=== PATIENT | male | born 1975 | race Caucasian/White ===

== ENCOUNTER 2017-10-14 13:10 | Inpatient (IN) | payer OTHER ==
[~2017-10-14] VITALS: Ht 185.4 cm; Wt 66.2 kg
[~2017-10-14 13:10] MED LIST: AUGMENTIN 875875 MG PO; MOTRIN800 MG PO
--- NOTE | 2017-10-14 13:22 | ED GENERAL ADULT ---
History of Present Illness General Chief Complaint: ETOH/Drug Related Complaint Stated Complaint: ETOH WITHDRAWL Source: patient Exam Limitations: no limitations Vital Signs & Intake/Output Vital Signs & Intake/Output Vital Signs Date Time Temp Pulse Resp B/P B/P Pulse O2 O2 Flow FiO2 Mean Ox Delivery Rate 10/15 1030 98.0 74 20 136/80 10/15 1014 98.0 74 20 136/80 99 Room Air 10/15 0830 98.4 81 18 145/89 10/15 0802 98.4 81 18 145/89 98 10/15 0634 98.3 60 18 114/61 99 Room Air 10/15 0629 98.6 78 18 101/60 10/15 0345 98.3 69 18 109/57 10/15 0344 98.0 69 18 109/57 97 Room Air 10/15 0009 98.0 64 18 118/70 10/14 2029 99.5 69 18 126/72 98 Room Air 10/14 1804 99.0 78 18 133/92 98 Room Air 10/14 1617 97.9 70 18 120/79 99 Room Air 10/14 1323 97.5 98 20 137/88 98 Room Air ED Intake and Output 10/15 0000 10/14 1200 Intake Total 1000 Output Total Balance 1000 Intake, IV 1000 Patient 146 lb Weight Weight Reported by Patient Measurement Method Allergies Coded Allergies: MDX - Nka - No Known Allergies (NKA - NO KNOWN ALLERGIES) (06/01/14) Reconcile Medications No Known Home Medications Triage Note: PT PRESENTS TO ED WITH , WHO STATES PT HAD A SEIZURE THIS AM, (WITNESSED BY HER). TRIED TO STOP DRINKING YESTERDAY, HAS BEEN DRINKING VODKA DAILY FOR YEARS. (8-10 DRINKS PER DAY). ANGRY, Triage Nurses Notes Reviewed? yes HPI: 42 yo M PMH EtOH abuse/dependence presenting with Seizure. Patient has extensive drinking history, has been drinking "for most of his life ", very heavily for at least the last 10-15 years, stopped drinking yesterday around 15: 00, today patient as were calling detox centers, patient was laying on the couch, tremulous, became unresponsive, had 2-3 minutes tonic-clonic seizure with spontaneous resolution, associated postictal confusion without fall from couch or head trauma. Shortly after the seizure patient ingested ~1L of vodka to prevent further withdrawal symptoms. Arrives to ED intoxicated, mild slurred speech, no other complaints at this time still desires alcohol cessation and detox. Patient notes fall with head trauma 1 week ago, sustained left frontal laceration, evaluated at outside hospital, per and patient CT head negative. Denies headaches, neck pain, fevers, chest pain, short of breath, cough or URI symptoms, abdominal pain, nausea, vomiting, diarrhea, Patient, but he stools, urinary symptoms, focal neurologic symptoms. (Ubaldo Aguero MD) Past History Travel History Traveled to [place] past 21 day No Medical History Any Pertinent Medical History? see below for history Other Medical Hx: ALCOHOL DEPENDENCE Surgical History Surgical History: non-contributory Psychosocial History What is your primary language Greek Family History Hx Contributory? No (Ubaldo Aguero MD) Review of Systems Review of Systems Constitutional: Reports: see HPI. EENTM: Reports: no symptoms. Respiratory: Reports: no symptoms. Cardiovascular: Reports: no symptoms. GI: Reports: no symptoms. Genitourinary: Reports: no symptoms. Musculoskeletal: Reports: no symptoms. Skin: Reports: no symptoms. Neurological/Psychological: Reports: see HPI. Hematologic/Endocrine: Reports: no symptoms. Immunologic/Allergic: Reports: no symptoms. All Other Systems: Reviewed and Negative (Ubaldo Aguero MD) Physical Exam Physical Exam General Appearance: well developed/nourished, no apparent distress, alert, awake Eyes: Bilateral: PERRL, EOMI. Ears, Nose, Throat: normal pharynx Neck: normal inspection, full range of motion, no midline tenderness Respiratory: normal breath sounds, no respiratory distress, lungs clear Cardiovascular: regular rate/rhythm, normal peripheral pulses Gastrointestinal: normal bowel sounds, soft, non-tender Comments: HEENT: Healing linear left frontal laceration with sutures in place C-spine: No midline bony C-spine tenderness to palpation with full range of motion Neurologic: Appears fatigued, oriented 3, cranial nerves II through XII intact, no pronator drift, no motor or sensory deficits throughout bilateral upper and lower extremities Core Measures ACS in differential dx? No CVA/TIA Diagnosis: No Sepsis Present: No Sepsis Focused Exam Completed? No (Ubaldo Aguero MD) Progress Differential Diagnoses I considered the following diagnoses in my evaluation of the patient: [Alcohol withdrawal, epilepsy, metabolic derarrangement, ICH] Plan of Care: Orders Procedure Date/time Status Regular Diet 10/15 L Active Regular Diet 10/15 B Complete OXYGEN SETUP (GEN) 10/15 1053 Active Saline Lock 10/15 1053 Active Admit to inpatient 10/15 1053 Active Vital Signs 10/15 1053 Active Activity/Ambulation 10/15 1053 Active Code Status 10/15 1053 Active Pathway - chart 10/15 0030 Active Add-on Test (ER Only) 10/14 1814 Active Pathway - chart 10/14 1544 Active CIWA 10/14 1544 Active URINE DRUG SCREEN FOR ER ONLY 10/14 1316 Complete URINALYSIS 10/14 1316 Complete MAGNESIUM 10/14 1316 Complete ETHANOL 10/14 1316 Complete COMPREHENSIVE METABOLIC PANEL 10/14 1316 Complete CBC WITHOUT DIFFERENTIAL 10/14 1316 Complete Current Medications Sig/Breanne Start time Last Medication Dose Stop Time Status Admin Lorazepam 2 MG Q2P PRN 10/15 0030 UNVr (Ativan) Lorazepam 1 MG Q2P PRN 10/15 0030 UNVr (Ativan) Lorazepam 2 MG Q2P PRN 10/14 1545 UNVr (Ativan) Lorazepam 1 MG Q2P PRN 10/14 1545 UNVr (Ativan) Folic Acid 1 MG DAILY 10/14 1430 UNVr 10/15 (Folic Acid) 1010 Multivitamins 1 TAB DAILY 10/14 1430 UNVr 10/15 (Theragran Vitamins) 1010 Thiamine HCl 100 MG DAILY 10/14 1430 UNVr 10/15 (Vitamin B1) 1010 Laboratory Tests 10/14/17 1423: Anion Gap 18 H, Estimated GFR > 60, BUN/Creatinine Ratio 16.0, Glucose 92, Calcium 9.4, Magnesium 1.7, Total Bilirubin 0.9, AST 77 H, ALT 46, Alkaline Phosphatase 61, Total Protein 7.9, Albumin 4.5, Globulin 3.4, Albumin/Globulin Ratio 1.3, CBC w Diff NO MAN DIFF REQ, RBC 4.45 L, MCV 98.6 H, MCH 32.9 H, MCHC 33.4, RDW 13.1, MPV 7.6, Gran % 59.6, Lymphocytes % 32.1, Monocytes % 7.0, Eosinophils % 1.0, Basophils % 0.3, Absolute Granulocytes 4.3, Absolute Lymphocytes 2.3, Absolute Monocytes 0.5, Absolute Eosinophils 0.1, Absolute Basophils 0, Serum Alcohol 358.0 10/14/17 1339: Urine Opiates Screen < 100, Methadone Screen < 40, Barbiturate Screen < 60, Ur Phencyclidine Scrn < 6.00, Amphetamines Screen 106, U Benzodiazepines Scrn 529 H, Urine Cocaine Screen < 50, Urine Cannabis Screen < 5.00, Urinalysis LIGHT H, Urine Color YEL, Urine Clarity HAZY H, Urine pH 6.0, Ur Specific Walker 1.020, Urine Protein TRACE H, Urine Ketones NEG, Urine Nitrite NEG, Urine Bilirubin NEG, Urine Urobilinogen 0.2, Ur Leukocyte Esterase NEG, Ur Microscopic SEDIMENT EXAMINED, Urine RBC RARE, Urine WBC 1-3 H, Ur Epithelial Cells OCCAS, Urine Bacteria RARE H, Hyaline Casts 50-75 H, Granular Casts 1-3 H, Urine Mucus MANY H, Urine Hemoglobin NEG, Urine Glucose NEG Physician MDM: 42 yo M PMH EtOH abuse/dependence presenting with Seizure. VSS, HR 90s, BP stable, neurologic exam non-focal. DDx: EtOH withdrawal seizure, metabolic derrangement, Less likely primary seizure disorder, low concern for ICH (given negative CT following injury). Ethanol level 358, patient does not have any active withdrawal symptoms, she will order placed, when necessary Ativan dose via CIWA ordered. 1L normal saline given for presumed dehydration in the setting of alcohol abuse. CBC unremarkable. CMP with mild hypokalemia to 3.0 (potassium repleted, magnesium repleaded empirically), mild AST elevation , otherwise normal LFTs. Plan to monitor for withdrawal symptoms in ED on CIWA scale, admit for detox in the setting of alcohol withdrawal seizure. Initial ED EKG: normal sinus rhythm (Laci CASTILLO,Ubaldo) Hand-Off Endorsed To: Sundar May MD Endorsed Time: 0700 Pending: consult (Onelia CASTILLO,Luis Alberto Luz) Comments: Certification completed for hospitalization for alcohol withdrawal seizure (Sundar May MD) Departure Departure Disposition: STILL A PATIENT Condition: Stable Clinical Impression Primary Impression: Alcohol withdrawal seizure Secondary Impressions: Alcohol dependence during childbirth Referrals: Patient Has No Primary Care Dr (PCP/Family) Departure Forms: Customer Survey General Discharge Information Prescriptions: Current Visit Scripts No Known Home Medications Admission Note Documentation of Exam: Documentation of any treatments & extenuating circumstances including Concerns Regarding Discharge (functional status, medication knowledge or non-compliance, living conditions, etc.) that warrant an admission rather than observation: [ Patient presents with a history of heavy alcohol abuse for the last 10-15 years, temperature stop drinking outpatient on his own and had a alcohol withdrawal seizure which carries an extremely high mortality, patient is currently intoxicated, patient requires monitoring for worsening withdrawal symptoms with sobriety, he requires admission for close observation, IV benzodiazepines, and further evaluation of seizure, if discharge the patient has a high likelihood of recurrent seizures in the setting of alcohol cessation, and possibly .] (Ubaldo Aguero MD) PA/PSYCHOLOGIST INDUSTRIAL [employer]GANIZATIONAL Co-Sign Statement Statement: ED Attending supervision documentation- [] I saw and evaluated the patient. I have also reviewed all the pertinent lab results and diagnostic results. I agree with the findings and the plan of care as documented in the PA's/PSYCHOLOGIST INDUSTRIAL ORGANIZATIONAL's documentation. [x] I have reviewed the ED Record and agree with the PA's/PSYCHOLOGIST INDUSTRIAL ORGANIZATIONAL's documentation. [] Additions or exceptions (if any) to the PAs/PSYCHOLOGIST INDUSTRIAL ORGANIZATIONAL's note and plan are summarized below: [] (Onelia CASTILLO,Luis Alberto Luz) Departure Time of Disposition: 1100 Admission Note Spoke With: Aneudy CASTILLO,Robert Documentation of Exam: Documentation of any treatments & extenuating circumstances including Concerns Regarding Discharge (functional status, medication knowledge or non-compliance, living conditions, etc.) that warrant an admission rather than observation: Alcohol Withdrawl Admission ED Alcohol Detox Admission d/t: DTs/Seizure w/i last year, Acute MedCond D/T Alcohol Resident Co-Sign Statement Statement: ED Attending supervision documentation- x I saw and evaluated the patient. I have also reviewed all the pertinent lab results and diagnostic results. I agree with the findings and the plan of care as documented in the Resident's documentation. [] I have reviewed the ED Record and agree with the Resident's documentation. [] Additions or exceptions (if any) to the Resident's note and plan are summarized below: [] (Yadira CASTILLO,Sundar) Critical Care Note Critical Care Note Critical Care Time: non-applicable (Laci CASTILLO,Ubaldo)
[2017-10-14 14:37] LABS: ABSOLUTE BASOPHIL COUNT 0 /CUMM (0.0-0.2); ABSOLUTE EOSINOPHIL COUNT 0.1 /CUMM (0.0-0.7); ABSOLUTE GRANULOCYTE CT 4.3 /CUMM (1.4-6.5); ABSOLUTE LYMPH COUNT 2.3 /CUMM (1.2-3.4); ABSOLUTE MONOCYTE COUNT 0.5 /CUMM (0.10-0.60); BASOPHIL % 0.3 % (0.0-2.0); GRANULOCYTE % 59.6 % (42.2-75.2); HEMATOCRIT 43.9 % (42-52); MEAN CORPUSCULAR HGB 32.9 PG (27.0-31.0); MEAN CORPUSCULAR HGB CONC 33.4 G/DL (33.0-37.0); MEAN CORPUSCULAR VOLUME 98.6 FL (80.0-94.0); MEAN PLATELET VOLUME 7.6 FL (7.4-10.4); PLATELET COUNT 117 /CUMM (130-400); RBC DISTRIBUTION WIDTH 13.1 % (11.5-14.5); RED BLOOD CELL CT 4.45 /CUMM (4.70-6.10); WHITE BLOOD CELL COUNT 7.2 /CUMM (4.8-10.8)
[2017-10-15] VITALS (9 sets, daily range): BP systolic 101–145; BP diastolic 57–89
--- NOTE | 2017-10-15 11:52 | History & Physical ---
Tawnya Lopez 10/15/17 1137: General Information and HPI MD Statement: I have seen and personally examined CLAUDIA CONTRERAS and documented this H&P. The patient is a 42 year old M who presented with a patient stated chief complaint of [recall detox]. Source of Information: patient Exam Limitations: no limitations History of Present Illness: Patient is a 42-year-old male with past medical history of withdrawal seizures, 3 episodes of alcohol detox(last detox [facility]) who presented to the ED requesting alcohol detox status post a tonic-clonic seizure at home. Patient reports that he has been drinking heavily for the past several years. He drinks mostly vodka about 8-10 drinks per day. Yesterday he was drinking all morning. At around midday, he had a tonic-clonic seizure witnessed by his . Seizure continued for 2-3 minutes along with postictal confusion. Patient denies any trauma, bowel or bladder incontinence, tongue biting during the seizure. The seizure he comes in 1 L of vodka prevent another episode. Patient also reported a recent fall about 7 days ago after which he was seen at an outpatient facility and a CAT scan done was negative for any acute head injury. Patient denies any headaches, neck pain, fevers, chest pain, short of breath, cough or URI symptoms, abdominal pain, nausea, vomiting, diarrhea, Patient, but he stools, urinary symptoms, focal neurologic symptoms. He has history of alcohol withdrawal seizures in the past. In the ED his vitals were stable. Labs were significant for hypokalemia and AST of 77. Tox positive for benzos. Ethanol level 358 Patient received IV fluids and IV potassium in the day. Allergies/Medications Allergies: Coded Allergies: MDX - Nka - No Known Allergies (NKA - NO KNOWN ALLERGIES) (06/01/14) Home Med list No Known Home Medications Past History Travel History Traveled to [place] past 21 day No Medical History Neurological: seizure Other Medical Hx: ALCOHOL DEPENDENCE Surgical History Surgical History: non-contributory Past Family/Social History Psychosocial History ETOH Use: alcoholic Review of Systems Review of Systems Constitutional: Reports: malaise, weakness. EENTM: Reports: no symptoms. Cardiovascular: Reports: no symptoms. Respiratory: Reports: no symptoms. GI: Reports: no symptoms. Genitourinary: Reports: no symptoms. Musculoskeletal: Reports: no symptoms. Neurological/Psychological: Reports: tremors. Exam & Diagnostic Data Last 24 Hrs of Vital Signs/I&O Vital Signs Date Time Temp Pulse Resp B/P B/P Pulse O2 O2 Flow FiO2 Mean Ox Delivery Rate 10/15 1030 98.0 74 20 136/80 10/15 1014 98.0 74 20 136/80 99 Room Air 10/15 0830 98.4 81 18 145/89 10/15 0802 98.4 81 18 145/89 98 10/15 0634 98.3 60 18 114/61 99 Room Air 10/15 0629 98.6 78 18 101/60 10/15 0345 98.3 69 18 109/57 10/15 0344 98.0 69 18 109/57 97 Room Air 10/15 0009 98.0 64 18 118/70 10/14 2029 99.5 69 18 126/72 98 Room Air 10/14 1804 99.0 78 18 133/92 98 Room Air 10/14 1617 97.9 70 18 120/79 99 Room Air 10/14 1323 97.5 98 20 137/88 98 Room Air Intake & Output 10/15 1600 10/15 0800 10/15 0000 Intake Total 240 Output Total Balance 240 Intake, Oral 240 Physical Exam General Appearance Alert, Oriented X3, Cooperative, No Acute Distress Skin LACERATION IN LEFT FRONTAL REGION WITH SUTURES Skin Temp/Moisture Exam: Warm/Dry Sepsis Skin Exam (color): Normal for Ethnicity HEENT Atraumatic, PERRLA, EOMI Neck Supple Lymphatic Cervical nl Cardiovascular Regular Rate, Normal S1, Normal S2, No Murmurs Lungs Clear to Auscultation, Normal Air Movement Abdomen Normal Bowel Sounds Neurological TREMORS Extremities No Clubbing, No Cyanosis, No Edema, Normal Pulses Assessment/Plan Assessment: Patient is a 42-year-old male with past medical history of withdrawal seizures, 3 episodes of alcohol detox(last detox [facility]) who presented to the ED requesting alcohol detox status post a tonic-clonic seizure at home. In the ED his vitals were stable. Labs were significant for hypokalemia and AST of 77. Tox positive for benzos. Ethanol level 358 Patient received IV fluids and IV potassium in the day. Assessment * Alcohol withdrawal seizures * Alcohol detoxification * Hypokalemia * Recent head injury * Thrombocytopenia * Alcoholic hepatitis Plan * Admit to general medicine * Seizure precautions * Vitals per protocol * Ativan po 2 mg to 6 and IV Ativan when necessary per CIWA * PO Multivitamin thiamine and folate * Potassium supplementation * Psych consult * ice cream vault worker consult * DVT Prophylaxis subcutaneous Lovenox * Full Code * Mild pain pathway As Ranked By This Provider Problem List: 1. Alcohol withdrawal seizure 2. Alcohol intoxication Core Measures/Misc (04/09) Acute Coronary Syndrome ACS Diagnosis: No Congestive Heart Failure Congestive Heart Failure Diagnosis No Cerebrovascular Accident CVA/TIA Diagnosis: No VTE (View Protocol) VTE Risk Factors Age>40 No Mechanical VTE Prophylaxis d/t N/A MechProphylax Ordered No VTE Pharm Prophylaxis d/t NA PharmProphylax ordered Sepsis (View protocol) Sepsis Present: No Aneudy CASTILLO,[facility] 10/15/17 1334: Attending MD Review Statement Attending Statement Attending MD Statement: examined this patient, discuss w/resident/PA/MANAGER BUSINESS PROCESS, agreed w/resident/PA/MANAGER BUSINESS PROCESS, reviewed EMR data (avail) Attending Assessment/Plan: Patient seen and examined. Plan of care discussed with the medical team and the patient. Available lab work and radiology test reports were reviewed. Patient seen and examined. Plan of care discussed with the medical team and the patient. Available lab work and radiology test reports were reviewed likely from alcohol withdrawal. After his last rehabilitation about 2 years ago he was sober for several months but then relapsed and has been drinking large amount work up to 1. per day. But he does ago he apparently had a fall and injured his left the forehead. Yesterday he apparently had a seizure. He is being admitted for alcohol withdrawal and detox. Assessment Alcohol abuse Alcohol withdrawal Alcohol withdrawal seizure History of fall Hypokalemia Thrombocytopenia Alcoholic hepatitis Mild metabolic acidosis Plan * replace potassium * Start Ativan 2 mg every 6 hours by mouth * CIWA protocol * Recheck CBC to monitor thrombocytopenia
--- NOTE | 2017-10-15 13:34 | Admission Certification ---
Admission Certification Certification Statement - As attending physician, I certify that at the time of - admission, based on clinical presentation, severity of - symptoms, need for further diagnostic testing and - therapeutic interventions, and risk of adverse outcomes - without in-hospital treatment, in my clinical assessment, - this patient requires an acute hospital stay for a minimum - of two nights or longer. I have also considered psychsocial - factors such as support system, advanced age, financial - issues, cognitive issues, and failed out-patient treatments, - past re-admission history, safety of patient, and lack of - compliance as applicable. Specific rationale supporting this admission is: Alcohol abuse alcohol withdrawal and alcohol withdrawal seizure
[2017-10-16] VITALS (10 sets, daily range): BP systolic 120–130; BP diastolic 70–88
--- NOTE | 2017-10-16 07:35 | PN- Housestaff ---
See Addendum Subjective Follow-up For: Alcohol withdrawl Subjective: Seen and examined the patient today morning He reports feeling better, able to walk around. Reports dry cough and requesting his stitches to be taken off. No nausea/vomiting/headache. Review of Systems Constitutional: Reports: see HPI. Objective Last 24 Hrs of Vital Signs/I&O Vital Signs Date Time Temp Pulse Resp B/P B/P Pulse O2 O2 Flow FiO2 Mean Ox Delivery Rate 10/16 1451 98.5 96 20 128/80 98 10/16 0800 98.9 90 20 120/88 10/16 0620 98.9 90 20 120/88 98 Room Air 10/16 0600 98.9 90 20 120/88 10/16 0216 99.0 95 18 124/70 98 Room Air 10/16 0200 99.0 95 18 124/70 10/15 2214 98.5 80 20 120/80 96 10/15 2200 98.5 80 20 120/80 Intake & Output 10/16 1600 10/16 0800 10/16 0000 Intake Total 490 250 Output Total Balance 490 250 Intake, IV 10 10 Intake, Oral 480 240 Patient 66.253 kg Weight Weight Bed scale Measurement Method Physical Exam General Appearance: Alert, Oriented X3, Cooperative Skin: No Rashes Skin Temp/Moisture Exam: Warm/Dry HEENT: Atraumatic, PERRLA, EOMI Neck: Supple Cardiovascular: Regular Rate, Normal S1, Normal S2 Lungs: Clear to Auscultation, Normal Air Movement Abdomen: Normal Bowel Sounds, Soft, No Tenderness Neurological: Normal Speech, Strength at 5/5 X4 Ext, Normal Tone, Sensation Intact, Cranial Nerves 3-12 NL, Reflexes 2+, tremulousness in upper extremities Extremities: No Clubbing, No Cyanosis, No Edema Current Medications: Current Medications Sig/Breanne Start time Last Medication Dose Route Stop Time Status Admin Acetaminophen 325 MG Q6 PRN 10/15 1115 AC PO Benzonatate 100 MG TID 10/16 1000 AC 10/16 PO 1057 Enoxaparin Sodium 40 MG DAILY 10/15 1113 AC 10/16 SC 1056 Folic Acid 1 MG DAILY 10/14 1430 AC 10/16 PO 1056 Lorazepam 1.5 MG Q6 10/16 1200 AC 10/16 PO 1128 Lorazepam 2 MG Q6 10/15 1200 DC 10/16 PO 0510 Lorazepam 1 MG Q1P PRN 10/15 1200 AC IV Multivitamins 1 TAB DAILY 10/14 1430 AC 10/16 PO 1056 Potassium Chloride 40 MEQ ONCE ONE 10/15 1515 DC 10/15 PO 10/15 1516 1746 Thiamine HCl 100 MG DAILY 10/14 1430 AC 10/16 PO 1056 Last 24 Hrs of Lab/Neo Results Last 24 Hrs of Labs/Mics: Laboratory Tests 10/16/17 0705: Anion Gap 12, Estimated GFR > 60, BUN/Creatinine Ratio 10.0, CBC w Diff NO MAN DIFF REQ, RBC 3.93 L, MCV 97.8 H, MCH 33.4 H, MCHC 34.1, RDW 12.7, MPV 8.6, Gran % 58.1, Lymphocytes % 31.5, Monocytes % 7.7, Eosinophils % 2.4, Basophils % 0.3, Absolute Granulocytes 2.9, Absolute Lymphocytes 1.6, Absolute Monocytes 0.4 , Absolute Eosinophils 0.1, Absolute Basophils 0 Assessment/Plan Assessment: Patient is a 42-year-old male with past medical history of withdrawal seizures, 3 episodes of alcohol detox(last detox [facility]) who presented to the ED requesting alcohol detox status post a tonic-clonic seizure at home. In the ED his vitals were stable. Labs were significant for hypokalemia and AST of 77. Tox positive for benzos. Ethanol level 358 Patient received IV fluids and IV potassium on the day of admission Problem list Alcohol withdrawal seizures Alcohol detoxification Hypokalemia Thrombocytopenia Admitted to general medicine floor Plan Alcohol withdrawl with seizures We will place him on Seizure precautions. His CIWA scores remained in the reasonable limits for the past 24hrs 4-5, so reduced ativan to 1.5mg Q6 scheduled along with PRN ativan. continue oral multivitamin/folate/thiamine. we will obtain records from [facility]. * Psych consult and boat worker consult * Ativan taper Thrombocytopenia with Macrocytosis Alcohol related. * Multivitamin/folate/thiamine Dry cough with runny nose Tessalon pearls DVT prophylaxis SC lovenox Code status Full code Problem List: 1. Alcohol intoxication 2. Alcohol withdrawal seizure Pain Ratin Pain Location: n/a Pain Goal: Pain 4 or less Pain Plan: tyelnol prn Tomorrow's Labs & Rationales: bep to monitor electrolytes
[2017-10-16 08:01] LABS: ABSOLUTE BASOPHIL COUNT 0 /CUMM (0.0-0.2); ABSOLUTE EOSINOPHIL COUNT 0.1 /CUMM (0.0-0.7); ABSOLUTE GRANULOCYTE CT 2.9 /CUMM (1.4-6.5); ABSOLUTE LYMPH COUNT 1.6 /CUMM (1.2-3.4); ABSOLUTE MONOCYTE COUNT 0.4 /CUMM (0.10-0.60); BASOPHIL % 0.3 % (0.0-2.0); EOSINOPHIL % 2.4 % (0-5); GRANULOCYTE % 58.1 % (42.2-75.2); MEAN CORPUSCULAR HGB 33.4 PG (27.0-31.0); MEAN CORPUSCULAR HGB CONC 34.1 G/DL (33.0-37.0); MEAN CORPUSCULAR VOLUME 97.8 FL (80.0-94.0); MEAN PLATELET VOLUME 8.6 FL (7.4-10.4); PLATELET COUNT 85 /CUMM (130-400); RBC DISTRIBUTION WIDTH 12.7 % (11.5-14.5); RED BLOOD CELL CT 3.93 /CUMM (4.70-6.10)
[2017-10-16 08:24] LABS: HEMATOCRIT 38.5 % (42-52)
--- NOTE | 2017-10-16 10:39 | Cons- Psychiatry ---
Psychiatric Consult Date of Consult: 10/16/17 Reason for Consult: "ALCOHOL DEPENDENCE" History of Present Illness: 42 , but , , Hebrew-speaking male presented to the ED with his , 10/14/17 @ 1318 with a chief complaint of a witnessed seizure (By ) that morning. He had tried to stop drinking that day. He has been drinking vodka 8-10 drinks daily for years. He has a healing laceration, small, above his left eyebrow from a fall the previous Monday. He c/o headache 11/30; refused medication for it. Per triage note, the found the patient on the floor seizing, foaming from his mouth, but without incontinence. Last drink 10/14/17 @ 1000. On admission, serum alcohol 358. Urine sample 10/14/2017 @ prior to triage note at 1343 Positive Utox for benzos 529 on 10/14/17 @ 1339 Hypokalemic. First lorazepam administered 10/15/17 @ 0218, per the triage note. CIWA 10/16/17 @ 0600: 0-2-1-3-6-0-1-1-2-8-4-0-6 VS 10/16/17 @ 0620: 120/88, 90, 98.9, 20RR, 98% RA, 0/10 pain Lorazepam scheduled 8 mg and no PRN in the last 24 hours. Reduced from 2 mg PO q 6 hours to 1.5 mg PO q 6 hours, by the medical team at 0943. The patient reports to me that he had re-started drinking 1 week ago, and has consumed 1-1/2 gallons of vodka in that time. His last alcohol detox was in [place] after the New Year. CT DEV MANAGER shows two Librium prescriptions, short term, in 2016. Allergies: Coded Allergies: No Known Allergies (10/16/17) Current Medications: Current Medications Sig/Breanne Start time Last Medication Dose Route Stop Time Status Admin Acetaminophen 325 MG Q6 PRN 10/15 1115 AC PO Benzonatate 100 MG TID 10/16 1000 AC PO Enoxaparin Sodium 0 .STK-MED ONE 10/15 1148 DC SC Enoxaparin Sodium 40 MG DAILY 10/15 1113 AC 10/15 SC 1145 Folic Acid 1 MG DAILY 10/14 1430 AC 10/15 PO 1010 Lorazepam 1.5 MG Q6 10/16 1200 AC PO Lorazepam 0 .STK-MED ONE 10/15 1207 DC PO Lorazepam 2 MG Q6 10/15 1200 DC 10/16 PO 0510 Lorazepam 1 MG Q1P PRN 10/15 1200 AC IV Lorazepam 2 MG Q2P PRN 10/15 0030 CAN PO Lorazepam 1 MG Q2P PRN 10/15 0030 CAN PO Lorazepam 2 MG Q2P PRN 10/14 1545 DC PO Lorazepam 1 MG Q2P PRN 10/14 1545 DC PO Multivitamins 1 TAB DAILY 10/14 1430 AC 10/15 PO 1010 Potassium Chloride 40 MEQ ONCE ONE 10/15 1515 DC 10/15 PO 10/15 1516 1746 Thiamine HCl 100 MG DAILY 10/14 1430 AC 10/15 PO 1010 Past History Past Medical History Neurological: seizure Respiratory: NONE Gastrointestinal: NONE Hepatic: NONE Renal: NONE Musculoskeletal: NONE Psychiatric: alcohol dependence, Possible benzo abuse Endocrine: NONE Blood Disorders: NONE Cancer(s): NONE Past Surgical History Surgical History: non-contributory Psychosocial History Strengths/Capabilities: Supportive , possibly motivated for treatment Physical Limitations (Interventions): None Psychiatric Treatment History Psych Treatment Psychiatric Treatment Yes Substance Use/Abuse History Drug Use/Abuse Substances Used/Abused Yes Substance Used/Abused Alcohol First Use Not evaluated 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 Assessment/Plan Mental Status Orientation: Person, Place, Situation Affect: Anxious, Constricted Speech: Evasive Neuro-vegetative: WNL Mental Status Exam: The patient is anxious, moving around the room, sitting intermittently, with good eye contact. He answers some questions, but is resistant and finally refuses to answer anymore questions. He is alert and oriented, he denies auditory/visual/tactile hallucinations. The patient asked what suicide means, and it was explained that it means killing oneself; he verbalizes understanding for the following questions: He denies suicidal or homicidal ideation, and denies any history of suicide attempt. He reports he has started drinking again one week ago and has consumed one and a half gallons of vodka in that time. His longest sobriety has been 2 weeks. He attends alcoholics [facility] and has a sponsor. He endorses seizure in the setting of alcohol withdrawal. He denies any detox or withdrawal in an ICU, and denies delirium tremens. He reports that he lives alone, apart from his . He has one child who lives with the , and an adult child, who does not. Lab Results: Laboratory Tests 10/16 10/14 0705 1423 Chemistry Sodium (137 - 145 mmol/L) 139 142 Potassium (3.5 - 5.1 mmol/L) 3.5 3.0 L Chloride (98 - 107 mmol/L) 100 95 L Carbon Dioxide (22 - 30 mmol/L) 27 28 Anion Gap (5 - 16) 12 18 H BUN (9 - 20 mg/dL) 5 L 8 L Creatinine (0.7 - 1.2 mg/dL) 0.5 L 0.5 L Estimated GFR (>60 ml/min) > 60 > 60 BUN/Creatinine Ratio (7 - 25 %) 10.0 16.0 Glucose (65 - 99 mg/dL) 92 Calcium (8.4 - 10.2 mg/dL) 9.4 Magnesium (1.6 - 2.3 mg/dL) 1.7 Total Bilirubin (0.2 - 1.3 mg/dL) 0.9 AST (17 - 59 U/L) 77 H ALT (21 - 72 U/L) 46 Alkaline Phosphatase (< 127 U/L) 61 Total Protein (6.3 - 8.2 g/dL) 7.9 Albumin (3.5 - 5.0 g/dL) 4.5 Globulin (1.9 - 4.2 gm/dL) 3.4 Albumin/Globulin Ratio (1.1 - 2.2 %) 1.3 Hematology CBC w Diff NO MAN DIFF REQ NO MAN DIFF REQ WBC (4.8 - 10.8 /CUMM) 5.0 7.2 RBC (4.70 - 6.10 /CUMM) 3.93 L 4.45 L Hgb (14.0 - 18.0 G/DL) 13.1 L 14.6 Hct (42 - 52 %) 38.5 L 43.9 MCV (80.0 - 94.0 FL) 97.8 H 98.6 H MCH (27.0 - 31.0 PG) 33.4 H 32.9 H MCHC (33.0 - 37.0 G/DL) 34.1 33.4 RDW (11.5 - 14.5 %) 12.7 13.1 Plt Count (130 - 400 /CUMM) 85 L 117 L MPV (7.4 - 10.4 FL) 8.6 7.6 Gran % (42.2 - 75.2 %) 58.1 59.6 Lymphocytes % (20.5 - 51.1 %) 31.5 32.1 Monocytes % (1.7 - 9.3 %) 7.7 7.0 Eosinophils % (0 - 5 %) 2.4 1.0 Basophils % (0.0 - 2.0 %) 0.3 0.3 Absolute Granulocytes (1.4 - 6.5 /CUMM) 2.9 4.3 Absolute Lymphocytes (1.2 - 3.4 /CUMM) 1.6 2.3 Absolute Monocytes (0.10 - 0.60 /CUMM) 0.4 0.5 Absolute Eosinophils (0.0 - 0.7 /CUMM) 0.1 0.1 Absolute Basophils (0.0 - 0.2 /CUMM) 0 0 Toxicology Serum Alcohol (<10 MG/DL) 358.0 10/14 1339 Toxicology Urine Opiates Screen (>2000 NG/ML) < 100 Methadone Screen (>300 NG/ML) < 40 Barbiturate Screen (>200 NG/ML) < 60 Ur Phencyclidine Scrn (>25 NG/ML) < 6.00 Amphetamines Screen (>1000 NG/ML) 106 U Benzodiazepines Scrn (>200 NG/ML) 529 H Urine Cocaine Screen (>300 NG/ML) < 50 Urine Cannabis Screen (>50 NG/ML) < 5.00 Urines Urinalysis LIGHT H Urine Color (YEL,AMB,STR) YEL Urine Clarity (CLEAR) HAZY H Urine pH (5.0 - 8.0) 6.0 Ur Specific [place] (1.001 - 1.035) 1.020 Urine Protein (NEG,<30 MG/DL) TRACE H Urine Ketones (NEG) NEG Urine Nitrite (NEG) NEG Urine Bilirubin (NEG) NEG Urine Urobilinogen (0.1 - 1.0 EU/dl) 0.2 Ur Leukocyte Esterase (NEG) NEG Ur Microscopic SEDIMENT EXAMINED Urine RBC (0 - 5 /HPF) RARE Urine WBC (0 - 2 /HPF) 1-3 H Ur Epithelial Cells (NONE,FEW) OCCAS Urine Bacteria (NEG/NONE) RARE H Hyaline Casts (0/LPF) 50-75 H Granular Casts (NONE /LPF) 1-3 H Urine Mucus (FEW,NONE) MANY H Urine Hemoglobin (NEG) NEG Urine Glucose (N MG/DL) NEG Diffential Diagnosis: Alcohol use disorder, recurrent, severe History of treatment for undisclosed mental health disorder History of seizure in the setting of alcohol withdrawal Alcoholic hepatitis Hypokalemia History of fall Mild metabolic acidosis Impression: The patient refuses the use of an panel edge sealer telephone or Martti. His Kenyan is adequate, requiring fewer explanations of terms. He is evasive about his treatment for mental health disorder, "I'm waiting for my ." He has given permission for me to speak with his . Similarly, his recent history with alcohol withdrawal in treatment for chronic alcohol abuse is markedly. Denies use of other drugs, including benzodiazepines and cannabis. Asked about the presence of benzodiazepines, such as Xanax or Ativan in his urine, the patient reports that he was given something for flu 2 weeks ago that he had to take twice a day for 7 days. He states that he was supposed to start work today or tomorrow, but declines to describe what the work is. During my visit, the patient took his red fall risk bracelet off and threw it away, "I'm okay now." The interview concluded when he stated "I give you too much information." He reports that he presented to the hospital with a problem with breathing and abdominal pain, but refuses to describe his current status. Medical team will be following up with him after my visit. The patient verbalizes understanding that if he leaves AGAINST MEDICAL ADVICE, he will not be given benzodiazepines to prevent seizure, as we fear that he will likely take those medications and drink alcohol. He verbalizes understanding of the risks include seizure and possibly . Provisional Treatment Plan: 1. Continue lorazepam 1.5 mg PO q 6 hours scheduled, as well as lorazepam q 1 hour PRN per CIWA. 2. Continue daily thiamine, folic acid and multivitamins. 3. Social work consult, to assist with aftercare planning. We will continue to follow along, to monitor the patient's withdrawal and mental status. Hopefully, we will learn about his admitted prior treatments when his spouse appears. The patient is not suicidal, psychotic, nor delirious, and may leave AMA. Please document that he understands he will be given no benzodiazepines to prevent possible seizure.
[2017-10-17] VITALS: BP 130/82
[2017-10-17 06:00] VITALS: BP 134/86
[2017-10-17 07:01] VITALS: BP 134/86
--- NOTE | 2017-10-17 07:35 | PN- Housestaff ---
Coleen CASTILLO,Kelsey 10/17/17 0735: Subjective Follow-up For: Alcohol withdrawl Subjective: Seen and examined Doing well. No overnight issues. Review of Systems Constitutional: Reports: see HPI. Objective Last 24 Hrs of Vital Signs/I&O Vital Signs Date Time Temp Pulse Resp B/P B/P Pulse O2 O2 Flow FiO2 Mean Ox Delivery Rate 10/17 0701 98.0 71 20 134/86 99 Room Air 10/17 0000 98.6 76 20 130/82 10/16 2250 98.6 76 20 130/82 98 Room Air 10/16 1451 98.5 96 20 128/80 98 10/16 1400 98.9 90 20 120/88 10/16 1200 98.5 96 20 128/80 10/16 1000 98.8 90 20 120/88 10/16 0800 98.9 90 20 120/88 Intake & Output 10/17 0800 10/17 0000 10/16 1600 Intake Total 300 Output Total Balance 300 Intake, Oral 300 Physical Exam General Appearance: Alert, Oriented X3, Cooperative Skin: No Rashes, No Breakdown HEENT: Atraumatic, PERRLA, EOMI Neck: Supple, No JVD Cardiovascular: Normal S1, Normal S2, No Murmurs Lungs: Clear to Auscultation, Normal Air Movement Abdomen: Normal Bowel Sounds, Soft, No Tenderness Neurological: Normal Gait, Normal Speech, Strength at 5/5 X4 Ext, Normal Tone Extremities: No Clubbing, No Cyanosis, No Edema Vascular: Normal Pulses, Pulses Symmetrical Current Medications: Current Medications Sig/Breanne Start time Last Medication Dose Route Stop Time Status Admin Acetaminophen 325 MG Q6 PRN 10/15 1115 AC PO Benzonatate 100 MG TID 10/16 1000 AC 10/17 PO 1048 Enoxaparin Sodium 40 MG DAILY 10/15 1113 AC 10/17 SC 1132 Folic Acid 1 MG DAILY 10/14 1430 AC 10/17 PO 1048 Lorazepam 1 MG Q8 10/17 1400 UNVr PO Lorazepam 1 MG Q6 10/17 1200 DC 10/17 PO 1132 Lorazepam 1.5 MG Q6 10/16 1200 DC 10/17 PO 0546 Lorazepam 1 MG Q1P PRN 10/15 1200 AC IV Multivitamins 1 TAB DAILY 10/14 1430 AC 10/17 PO 1048 Potassium Chloride 40 MEQ ONCE ONE 10/16 1530 DC 10/16 PO 10/16 1531 1646 Thiamine HCl 100 MG DAILY 10/14 1430 AC 10/17 PO 1047 Last 24 Hrs of Lab/Neo Results Last 24 Hrs of Labs/Mics: Laboratory Tests 10/17/17 0725: Anion Gap 13, Estimated GFR > 60, BUN/Creatinine Ratio 18.0, Magnesium 1.4 L Assessment/Plan Assessment: Patient is a 42-year-old male with past medical history of withdrawal seizures, 3 episodes of alcohol detox(last detox [facility]) who presented to the ED requesting alcohol detox status post a tonic-clonic seizure at home. In the ED his vitals were stable. Labs were significant for hypokalemia and AST of 77. Tox positive for benzos. Ethanol level 358 Patient received IV fluids and IV potassium on the day of admission Problem list Alcohol withdrawal seizures Alcohol detoxification Hypokalemia Thrombocytopenia Admitted to general medicine floor Plan Alcohol withdrawl with seizures We will place him on Seizure precautions. His CIWA scores remained in the reasonable limits for the past 24hrs 2-3, so reduced ativan to 1mg Q8 scheduled along with PRN ativan. continue oral multivitamin/folate/thiamine. * Psych consult and concession worker consult * Patient is not willing to go to any IOP program for now, wants to proceed with AA. * Ativan taper - 7mg for the past 24hrs Thrombocytopenia with Macrocytosis Alcohol related. * Multivitamin/folate/thiamine Dry cough with runny nose Tessalon pearls Patient did have facial stitches done - placed 10 days ago. Removed at bedside yesterday per patient request. DVT prophylaxis SC lovenox Code status Full code Problem List: 1. Alcohol intoxication 2. Alcohol withdrawal seizure Pain Ratin Pain Location: n/a Pain Goal: Pain 4 or less Pain Plan: tylenol prn Tomorrow's Labs & Rationales: bepmag Michael MD,Екатерина 10/17/17 1139: Attending MD Review Statement Attending Statement Attending Statement: examined this patient, discuss w/resident/PA/SALESPERSON AUTOMOBILES, agreed w/resident/PA/SALESPERSON AUTOMOBILES, reviewed EMR data (avail), discussed with nursing, discussed with case mgmt, reviewed images, amended to note Attending Assessment/Plan: Patient seen and examined, overall doing better. CIWA scores are running low. Patient denies any shaking or any other withdrawal symptoms. Vital Signs Date Time Temp Pulse Resp B/P B/P Pulse O2 O2 Flow FiO2 Mean Ox Delivery Rate 10/17 0701 98.0 71 20 134/86 99 Room Air 10/17 0600 98.0 71 20 134/86 10/17 0000 98.6 76 20 130/82 10/16 2250 98.6 76 20 130/82 98 Room Air 10/16 1451 98.5 96 20 128/80 98 10/16 1400 98.9 90 20 120/88 10/16 1200 98.5 96 20 128/80 on exam; aox3, nad. cv; s1, s2, rrr resp; clear abd; soft, nt, bs+ ext; no edema Laboratory Tests 10/17 0725 Chemistry Sodium (137 - 145 mmol/L) 141 Potassium (3.5 - 5.1 mmol/L) 4.1 Chloride (98 - 107 mmol/L) 102 Carbon Dioxide (22 - 30 mmol/L) 26 Anion Gap (5 - 16) 13 BUN (9 - 20 mg/dL) 9 Creatinine (0.7 - 1.2 mg/dL) 0.5 L Estimated GFR (>60 ml/min) > 60 BUN/Creatinine Ratio (7 - 25 %) 18.0 Magnesium (1.6 - 2.3 mg/dL) 1.4 L A/P; 42-year-old male who was admitted with acute alcohol intoxication needing detox. Continue Ativan taper. Continue scheduled and when necessary Ativan. We will decrease to 1 mg every 8 hours scheduled and continue the when necessary. Continue multivitamin, folate and thiamine. Patient on Lovenox for DVT prophylaxis. He wants to go home tomorrow no matter what. Appreciate psych input. Patient will need outpatient plan for alcohol rehabilitation.
[2017-10-17 08:00] VITALS: BP 134/86
--- NOTE | 2017-10-17 11:44 | PN- Psychiatry ---
Assessment/Plan Impression: The patient is scheduled to have his last dose of lorazepam at 0600 on 10/19/17, although he is making good progress in his alcohol detox protocol. CIWA 10/17/17 @ 0600: 1-1-1-2-7-0-2-2-4-4-5 VS 10/17/17 @ 0701: 134/86, 71, 98.0, 20, 99% RA, pain 0 Lorazepam scheduled 6 mg + PRN none = 6 mg/last 24 hours. He has not needed any PRN doses. He has to be at work with his construction crew tomorrow, and is asking to be discharged by 1200. He will have three doses of lorazepam 0.5 mg q 6 hours to finish at that time. He has an intake appt at [facility] on October 23 at 0930. Suggestion: 1. Continue lorazepam 1 mg PO q 6 hours scheduled for 4 doses starting 10/17/17 @ 1200, then lorazepam 0.5 mg PO q 6 hours for 4 doses, then stop. Continue lorazepam q 1 hour PRN per CIWA. 2. Continue daily thiamine, folic acid and multivitamins. 3. [facility] intake on Monday, October 23, 2017, at 9:30 AM, at [address] [place] [address], [phone]. 4. Please mminimize nursing interventions at night to promote adequate, restful sleep. We will continue to follow. Subjective Subjective: A+OX3 Denies AVH, presents no michelle delusions. He denies SI or HI. Sleep poor, 3 hours Appetite good. Review of Systems Constitutional: Reports: no symptoms. Objective Last 24 Hrs of Vital Signs/I&O Vital Signs Date Time Temp Pulse Resp B/P B/P Pulse O2 O2 Flow FiO2 Mean Ox Delivery Rate 10/17 0701 98.0 71 20 134/86 99 Room Air 10/17 0600 98.0 71 20 134/86 10/17 0000 98.6 76 20 130/82 10/16 2250 98.6 76 20 130/82 98 Room Air 10/16 1451 98.5 96 20 128/80 98 10/16 1400 98.9 90 20 120/88 10/16 1200 98.5 96 20 128/80 Intake & Output 10/17 1600 10/17 0800 10/17 0000 Intake Total 350 300 Output Total Balance 350 300 Intake, Oral 350 300 Number 0 Bowel Movements Patient 146 lb Weight Physical Exam: Not performed. Physical Exam General Appearance: no apparent distress, alert, awake, comfortable Neurologic/Psychiatric: awake, alert, oriented x 3, normal gait, normal mood/ affect Current Medications: Current Medications Sig/Breanne Start time Last Medication Dose Route Stop Time Status Admin Acetaminophen 325 MG Q6 PRN 10/15 1115 AC PO Benzonatate 100 MG TID 10/16 1000 AC 10/17 PO 1048 Enoxaparin Sodium 40 MG DAILY 10/15 1113 AC 10/17 SC 1132 Folic Acid 1 MG DAILY 10/14 1430 AC 10/17 PO 1048 Lorazepam 1 MG Q6 10/17 1200 AC 10/17 PO 1132 Lorazepam 1.5 MG Q6 10/16 1200 DC 10/17 PO 0546 Lorazepam 1 MG Q1P PRN 10/15 1200 AC IV Multivitamins 1 TAB DAILY 10/14 1430 AC 10/17 PO 1048 Potassium Chloride 40 MEQ ONCE ONE 10/16 1530 DC 10/16 PO 10/16 1531 1646 Thiamine HCl 100 MG DAILY 10/14 1430 AC 10/17 PO 1047 Results Last 24 Hrs of Labs/Mics: Laboratory Tests 10/17 0725 Chemistry Sodium (137 - 145 mmol/L) 141 Potassium (3.5 - 5.1 mmol/L) 4.1 Chloride (98 - 107 mmol/L) 102 Carbon Dioxide (22 - 30 mmol/L) 26 Anion Gap (5 - 16) 13 BUN (9 - 20 mg/dL) 9 Creatinine (0.7 - 1.2 mg/dL) 0.5 L Estimated GFR (>60 ml/min) > 60 BUN/Creatinine Ratio (7 - 25 %) 18.0 Magnesium (1.6 - 2.3 mg/dL) 1.4 L
--- NOTE | 2017-10-17 13:32 | Discharge Summary ---
Visit Information Visit Dates Admission Date: 10/15/17 Discharge Date: 10/18/17 Hospital Course Course Attending Physician: Екатерина Rodriguez MD Primary Care Physician: Patient Has No Primary Care Dr Consulting Request: Consulting Specialty: Psychiatry Consulting Physician: Jamila Lawson APRN Reason for Consult: Alcohol detoxification Hospital Course: Patient is a 42-year-old male with past medical history of withdrawal seizures, 3 episodes of alcohol detox(last detox [facility]) who presented to the ED requesting alcohol detox status post a tonic-clonic seizure at home. In the ED his vitals were stable. Labs were significant for hypokalemia and AST of 77. Tox positive for benzos. Ethanol level 358 Patient received IV fluids and IV potassium on the day of admission Problem list Alcohol withdrawal seizures Alcohol detoxification Hypokalemia Thrombocytopenia Hypomagnesemia Admitted to general medicine floor Plan Alcohol withdrawal with seizures We will place him on Seizure precautions. Underwent Ativan taper per CIWA scores without any further episodes of seizures. Psych consult and craft worker consulted. Patient is not willing to go to any IOP program for now, wants to proceed with AA. He still needs taper of his ativan for the next 3days which were prescribed. He is stable for discharge otherwise. Thrombocytopenia with Macrocytosis Alcohol related. Provided with Multivitamin/folate/thiamine Dry cough with runny nose Tessalon lisa Patient is a 42-year-old male with past medical history of withdrawal seizures, 3 episodes of alcohol detox(last detox [facility]) who presented to the ED requesting alcohol detox status post a tonic-clonic seizure at home. In the ED his vitals were stable. Labs were significant for hypokalemia and AST of 77. Tox positive for benzos. Ethanol level 358 Patient received IV fluids and IV potassium on the day of admission Problem list Alcohol withdrawal seizures Alcohol detoxification Hypokalemia Thrombocytopenia Hypomagnesemia Admitted to general medicine floor Plan Alcohol withdrawl with seizures We will place him on Seizure precautions. His CIWA scores remained in the reasonable limits for the past 24hrs 2-3, so reduced ativan to 1mg Q8 scheduled along with PRN ativan. continue oral multivitamin/folate/thiamine. * Psych consult and craft worker consult * Patient is not willing to go to any IOP program for now, wants to proceed with AA. * Ativan taper - 7mg for the past 24hrs * Patient discharged home on three doses of 0.5 mg ativan. Encouraged not to drink while on medication. 10/18: 0.5 mg BID. 10/19: 0.5 mg daily. Thrombocytopenia with Macrocytosis Alcohol related. * Multivitamin/folate/thiamine Dry cough with runny nose Tessalon pearls Patient did have facial stitches done - placed 10 days ago. Removed at bedside yesterday per patient request. Hypomagnesemia: Patient was give IV Magnesium 2 mg prior to dischage. He was also discharged home on PO magnesium with instructions to follow up with an outpatient provider. DVT prophylaxis SC lovenox Code status Full code Complications: none Allergies: Coded Allergies: No Known Allergies (10/16/17) Significant Procedures: none Pertinent Lab Results: as above Disposition Summary Disposition Principal Diagnosis: Alcohol detoxification after reported seizure episode Additional Diagnosis: Macrocytosis with thrombocytopenia Discharge Disposition: home or self care Discharge Instructions General Discharge Information Code Status: Full Code Patient's Diet: as tolerated Patient's Activity: full activity as tolerated Follow-Up Instructions/Appts: Please follow up with your PCP in a week Medications at Discharge Discharge Medications: Start taking the following new medications: Folic Acid (Folic Acid) 1 MG TABLET 1 Milligram ORAL DAILY Qty = 30 No Refills Instructions: . Comments: Last Taken: 10/18/17 Time: 1000 AM Thiamine HCl (Vitamin B-1) 100 MG TABLET 100 Milligram ORAL DAILY Qty = 30 No Refills Instructions: . Comments: Last Taken: 10/18/17 Time: 1000 AM Magnesium Oxide (Magnesium) 400 MG TABLET 1 Tablet ORAL TWICE DAILY Qty = 14 No Refills Instructions: . Comments: Last Taken: 10/18/17 Time: 10 AM Lorazepam (Ativan) 0.5 MG TABLET 1 Tablet ORAL DAILY NEEDED Qty = 3 No Refills Instructions: .10/18, take 1 tab at 1400 and 1 tab at 2200 10/19, take 1 tab at 1000 Comments: Ativan 1mg given 10/18/17 TIME: 200 PM Copies To: Martín CASTILLO,Martín; Sang Marino APRN Attending Review Statement Documenting Attending: Michael CASTILLO,Екатерина
[2017-10-17 15:36] VITALS: BP 120/80
--- NOTE | 2017-10-17 19:13 | Patient Discharge Instructions ---
Discharge Instructions General Discharge Information You were seen/treated for: alcohol withdrawl Special Instructions: Please follow up with your PCP in a week. Please have them check a BEP and Magnesium level. Please follow up with [facility] program if interested -- Intensive Outpatient Program intake on Monday, October 23, 2017, at 9:30 AM, [facility] [address] [facility] [place] [address], . While you are on Ativan, do not consume alcohol. Do not drive or operate heavy machinery while on this medication. Diet Continue normal diet: Yes Activity Full Activity/No Limits: Yes Acute Coronary Syndrome Inclusion Criteria At DC or during hospital stay patient has or had the following: ACS DIAGNOSIS No Discharge Core Measures Meds if any: Prescribed or Continued at Discharge Meds if any: NOT Prescribed or Continued at Discharge Congestive Heart Failure Inclusion Criteria At DC or during hospital stay patient has or had the following: CHF DIAGNOSIS No Discharge Core Measures Meds if any: Prescribed or Continued at Discharge Meds if any: NOT Prescribed or Continued at Discharge Cerebrovascular accident Inclusion Criteria At DC or during hospital stay patient has or had the following: CVA/TIA Diagnosis No Discharge Core Measures Meds if any: Prescribed or Continued at Discharge Meds if any: NOT Prescribed or Continued at Discharge Venous thromboembolism Inclusion Criteria VTE Diagnosis No VTE Type NONE VTE Confirmed by (Test) NONE Discharge Core Measures - Per Current guidelines, there needs to be overlap - treatment for the first 5 days of Warfarin therapy. - If discharged on Warfarin prior to 5 days of - overlap therapy, the patient will need to be - assessed for post discharge needs including - *Post discharge parental anticoagulation - *Warfarin and/or parental anticoagulation education - *Follow up date to check INR post discharge At least 5 days overlap therapy as Inpatient No Meds if any: Prescribed or Continued at Discharge Note: Overlap Therapy is Warfarin and Anticoagulant Meds if any: NOT Prescribed or Continued at Discharge
[2017-10-17] MEDS ORDERED: ATIVAN1 M1 PO ×2 (19:15→19:16)
[2017-10-17 22:53] VITALS: BP 122/80
[2017-10-18 06:40] VITALS: BP 120/80
--- NOTE | 2017-10-18 07:06 | PN- Housestaff ---
Lily CASTILLO,[facility] 10/18/17 0705: Subjective Follow-up For: Alcohol withdral Subjective: Patient was seen and examined this morning. Resting comfortably in bed. Endorses no issues overnight. States would like to be discharged at the soonest. Denies any fever, chills, nausea or vomiting. present at bedside. Review of Systems Constitutional: Reports: see HPI. Objective Last 24 Hrs of Vital Signs/I&O Vital Signs Date Time Temp Pulse Resp B/P B/P Pulse O2 O2 Flow FiO2 Mean Ox Delivery Rate 10/18 1427 98.1 75 18 110/84 97 Room Air 10/18 0640 98.5 95 20 120/80 96 Room Air 10/17 2253 98.1 79 20 122/80 98 Room Air Intake & Output 10/18 1600 10/18 0800 10/18 0000 Intake Total 800 480 Output Total Balance 800 480 Intake, Oral 800 480 Physical Exam General Appearance: Alert, Oriented X3 Cardiovascular: Regular Rate, Normal S1, Normal S2 Lungs: Clear to Auscultation Abdomen: Normal Bowel Sounds, Soft, No Tenderness Neurological: Normal Gait, Normal Speech Extremities: No Clubbing, No Cyanosis Assessment/Plan Assessment: Patient is a 42-year-old male with past medical history of withdrawal seizures, 3 episodes of alcohol detox(last detox [facility]) who presented to the ED requesting alcohol detox status post a tonic-clonic seizure at home. In the ED his vitals were stable. Labs were significant for hypokalemia and AST of 77. Tox positive for benzos. Ethanol level 358 Patient received IV fluids and IV potassium on the day of admission Problem list Alcohol withdrawal seizures Alcohol detoxification Hypokalemia Thrombocytopenia Hypomagnesemia Admitted to general medicine floor Plan Alcohol withdrawl with seizures We will place him on Seizure precautions. His CIWA scores remained in the reasonable limits for the past 24hrs 2-3, so reduced ativan to 1mg Q8 scheduled along with PRN ativan. continue oral multivitamin/folate/thiamine. 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 Encouraged not to drink while on medication. He demonstrated good understanding of not consuming alcohol while on this medication. Also instructed not to consume alcohol or operate heavy machinery. 10/18: 0.5 mg BID. 10/19: 0.5 mg daily. Thrombocytopenia with Macrocytosis Alcohol related. * Multivitamin/folate/thiamine Dry cough with runny nose Tessalon pearls Hypomagnesemia: Patient to be given IV Magnesium 2 mg prior to dischage. He will be discharged home on PO magnesium with instructions to follow up with an outpatient provider. DVT prophylaxis SC lovenox Code status Full code Problem List: 1. Alcohol intoxication 2. Alcohol withdrawal seizure Problem List: 1. Alcohol withdrawal seizure 2. Alcohol intoxication Pain Ratin Pain Location: No pain Pain Goal: Remain pain free Pain Plan: NA Tomorrow's Labs & Rationales: NA Consulting Request: Consulting Specialty: Psychiatry Consulting Physician: Jamila Lawson APRN Reason for Consult: Alcohol detoxification Michael CASTILLO,Екатерина 10/18/17 1052: Attending MD Review Statement Attending Statement Attending MD Statement: examined this patient, discuss w/resident/PA/PHARMACY INTAKE COORDINATOR, agreed w/resident/PA/PHARMACY INTAKE COORDINATOR, reviewed EMR data (avail), discussed with nursing, discussed with case mgmt, reviewed images, amended to note Attending Assessment/Plan: Patient seen and examined, feels overall much better. Low CIWA scores. On ativan taper. Has low Mag, Will repelete IV. He will be discharged today on few pills of ativan. He will be referred to a PCP, and he has an outpatient plan for ETOH rehab. Will be discharged today.
[2017-10-18] MEDS ORDERED: ATIVAN0.5 M1 PO ×2 (09:26→09:38)
[2017-10-18] MEDS ORDERED: MAGNESIUM400 MG PO ×2 (09:26→09:38)
[2017-10-18] MEDS ORDERED: FOLIC ACID1 M1 PO ×2 (09:26→09:38)
[2017-10-18] MEDS ORDERED: VITAMIN B-1100 MG PO ×2 (09:26→09:38)
[2017-10-18 14:27] VITALS: BP 110/84
== END 2017-10-18 15:52 | DRG 775 ==
LOC: ERH 13:10 → ERHI 10-15 10:53 → 2NA 10-15 10:53 → ENRESERV 10-15 11:43 → ENTRNSPT 10-15 12:32 → EDTRNSPT 10-15 12:36 → EDTRNSPTSTS 10-15 12:36 → 2NA 10-15 12:41 → CMPTRNSPT 10-15 12:58 → 2NA 10-16 07:51
PROVIDERS: Physician Assistant Medical; Student in an Organized Health Care Education/Training Program
DX: F10.239 Alcohol dependence with withdrawal, unspecified (principal); Y90.8 Blood alcohol level of 240 mg/100 ml or more; E87.1 Hypo-osmolality and hyponatremia; E87.6 Hypokalemia; D69.6 Thrombocytopenia, unspecified; K70.10 Alcoholic hepatitis without ascites; E87.2 Acidosis; F13.10 Sedative, hypnotic or anxiolytic abuse, uncomplicated; Z91.81 History of falling; F10.229 Alcohol dependence with intoxication, unspecified; E83.42 Hypomagnesemia; G40.89 Other seizures; D75.89 Other specified diseases of blood and blood-forming organs
CPT/HCPCS: 2NAP; 36592; 80307; 81001; 82436; 99232; G0480; J1650; J3490

== ENCOUNTER 2017-11-14 23:12 | Emergency (ER) | payer OTHER ==
[~2017-11-14] VITALS: Ht 177.8 cm; Wt 74.8 kg
[~2017-11-14 23:12] MED LIST changes: +ATIVAN0.5 M1 PO; +ATIVAN1 M1 PO; +FOLIC ACID1 M1 PO; +MAGNESIUM400 MG PO; +VITAMIN B-1100 MG PO
--- NOTE | 2017-11-14 23:57 | ED ANKLE/FOOT INJURY COMPLAINT ---
History of Present Illness General Chief Complaint: Lower Extremity Injury Stated Complaint: "RT FOOT PAIN, SWOLLEN" Source: patient, family, old records Exam Limitations: no limitations Vital Signs & Intake/Output Vital Signs & Intake/Output Vital Signs Date Time Temp Pulse Resp B/P B/P Pulse O2 O2 Flow FiO2 Mean Ox Delivery Rate 11/15 0046 98.5 88 18 120/65 97 Room Air 11/14 2340 Room Air 11/14 2318 98.6 98 16 115/76 97 Room Air ED Intake and Output 11/15 0000 11/14 1200 Intake Total Output Total Balance Patient 165 lb Weight Weight Estimated Measurement Method Allergies Coded Allergies: No Known Allergies (10/16/17) Reconcile Medications Folic Acid 1 MG TABLET 1 MG PO DAILY Supplement . Lorazepam (Ativan) 0.5 MG TABLET 1 TAB PO DAILY NEEDED Alcohol withdrawal .10/18, take 1 tab at 1400 and 1 tab at 2200 10/19, take 1 tab at 1000 Magnesium Oxide (Magnesium) 400 MG TABLET 1 TAB PO BID Hypomagnesemia . Thiamine HCl (Vitamin B-1) 100 MG TABLET 100 MG PO DAILY Supplement . Triage Note: RECEIVED 42 YO MALE C/O RIGHT FOOT PAIN BETWEEN ANKLE AND TIP OF FOOT. PT INJURED FOOT TODAY CHANGING TIRE ABOUT 5 PM. PT UNABLE TO WEIGHT BEAR. Triage Nurses Notes Reviewed? yes HPI: Earlier this afternoon the patient was changing a tire on flat. The tire stuck so he kicked it. Since then he has had a sharp stabbing pain to his right foot. There is no radiation. The pain increased with ambulation. The pain is 8 out of 10. Patient denies any other injury. Past History Travel History Traveled to [place] past 21 day No Medical History Any Pertinent Medical History? see below for history Neurological: seizure Respiratory: NONE Gastrointestinal: NONE Hepatic: NONE Renal: NONE Musculoskeletal: NONE Psychiatric: alcohol dependence, Possible benzo abuse Endocrine: NONE Blood Disorders: NONE Cancer(s): NONE Other Medical Hx: ALCOHOL DEPENDENCE History of MRSA: No History of VRE: No History of CDIFF: No Surgical History Surgical History: non-contributory Psychosocial History Who do you live with Spouse What is your primary language Burkinan Tobacco Use: Current Daily Use Daily Tobacco Use Amount/Type: => 5 Cigarettes daily ETOH Use: alcoholic Illicit Drug Use: denies illicit drug use Family History Hx Contributory? No Review of Systems Review of Systems Constitutional: Reports: no symptoms. Respiratory: Reports: no symptoms. Cardiovascular: Reports: no symptoms. GI: Reports: no symptoms. Musculoskeletal: Reports: see HPI. Neurological/Psychological: Reports: no symptoms. Immunologic/Allergic: Reports: no symptoms. Physical Exam Physical Exam General Appearance: well developed/nourished, alert, awake, anxious, mild distress Head: atraumatic, normal appearance Eyes: Bilateral: PERRL, EOMI. Cardiovascular/Respiratory: normal breath sounds, normal peripheral pulses, regular rate/rhythm, no respiratory distress Leg/Knee/Thigh Left: normal range of motion, normal inspection Leg/Knee/Thigh Right: normal range of motion, normal inspection Foot Right: tenderness, limited range of motion, pain Neuro/Vascular: normal motor function, normal sensation Tendon: normal tendon function Psychiatric: awake, alert, oriented x 3 Skin: intact, normal color, warm/dry Progress Differential Diagnosis: fracture, sprain, contusion Plan of Care: Orders Procedure Date/time Status Durable Medical Equipment 11/15 28 Active Diagnostic Imaging: Viewed by Me: Radiology Read. Discussed w/RAD: Radiology Read. Radiology Impression: PATIENT: CLAUDIA CONTRERAS PRESENT AGE: 42 PATIENT ACCOUNT NO: [id number] : 77 LOCATION: [facility] ORDERING PHYSICIAN: Luis Clifton MD SERVICE DATE: 11/14/17 EXAM TYPE: RAD - XRY-FOOT COMPLETE, R EXAMINATION: XR FOOT, RIGHT CLINICAL INFORMATION: Right foot pain between toes and ankle, status post injury COMPARISON: None TECHNIQUE: AP, lateral, and oblique views of the right foot. FINDINGS: Osseous alignment is anatomic. There is subtle cortical irregularity at the head of the second metatarsal, which could reflect acute fracture in the proper clinical setting. There is an age-indeterminate tiny osseous density dorsal to the distal talus, which may be chronic in nature. No significant ankle effusion. IMPRESSION: 1. Subtle cortical irregularity at the head of the second metatarsal; clinical correlation recommended for possible nondisplaced fracture. 2. Tiny osseous density adjacent to the distal talus, which could be sequelae of age-indeterminate injury. DICTATED BY: Dallin Otero MD DATE/TIME DICTATED: 11/15/1735 [employer]EN[employer]IAN BLIND INSTALLER:NGUYEN DATE/TIME TRANSCRIBED:11/15/1735 CONFIDENTIAL, DO NOT COPY WITHOUT APPROPRIATE AUTHORIZATION. <Electronically signed in Other Vendor System> SIGNED BY: Dallin Otero MD 11/15/17 0044 Departure Departure Disposition: HOME OR SELF CARE Condition: Stable Clinical Impression Primary Impression: Right foot sprain Secondary Impressions: Foot fracture, right Referrals: Dee ALLISON,Pan Christine DO,Alek Gonzalez (PCP/Family) Additional Instructions: WEAR BOOT FOLLOW UP WITH DR. KOHLER RETURN IF SYMPTOMS WORSEN OR FOR ANY CONCERNS Departure Forms: Customer Survey General Discharge Information Procedures Splinting Location: RIGHT FOOT Manual Alignment Performed: No Pre-Made Type: BOOT Splint: posterior walking Splint Applied By: splint applied by other Pre-Proc Neuro Vasc Exam: normal Post-Proc Neuro Vasc Exam: normal
--- NOTE | 2017-11-15 00:44 | RADIOLOGY REPORT ---
EXAMINATION: XR FOOT, RIGHT CLINICAL INFORMATION: Right foot pain between toes and ankle, status post injury COMPARISON: None TECHNIQUE: AP, lateral, and oblique views of the right foot. FINDINGS: Osseous alignment is anatomic. There is subtle cortical irregularity at the head of the second metatarsal, which could reflect acute fracture in the proper clinical setting. There is an age-indeterminate tiny osseous density dorsal to the distal talus, which may be chronic in nature. No significant ankle effusion. IMPRESSION: 1. Subtle cortical irregularity at the head of the second metatarsal; clinical correlation recommended for possible nondisplaced fracture. 2. Tiny osseous density adjacent to the distal talus, which could be sequelae of age-indeterminate injury.
[2017-11-15 00:46] VITALS: BP 120/65
== END 2017-11-15 00:47 ==
LOC: ERH 23:12
DX: S92.321A Displaced fracture of second metatarsal bone, right foot, initial encounter for closed fracture (principal); S93.601A Unspecified sprain of right foot, initial encounter; W22.8XXA Striking against or struck by other objects, initial encounter; Y92.9 Unspecified place or not applicable; Y93.9 Activity, unspecified
CPT/HCPCS: 73630-RT